=== PATIENT | male | born 1965 | race Caucasian/White ===

== ENCOUNTER 2017-02-16 09:03 | Inpatient (IN) | payer MEDICAID ==
[2017-02-02 10:30] LABS: % IMMATURE GRANULYOCYTES 0.7 % (0.0-1.1); ABSOLUTE IMMATURE GRANULOCYTES 0.05 10^3/uL (0.00-0.10); ADD DIFF? NO; ADD MORPH? NO; ADD SCAN? NO; ATYPICAL LYMPHOCYTE FLAG 10 (0-99); FRAGMENT RBC FLAG 0 (0-99); HEMOGLOBIN 14.9 g/dL (13.7-17.5); LEFT SHIFT FLG 0 (0-99); LIPEMIA HEMOLYSIS FLAG 90 (0-99); MEAN CELL HEMOGLOBIN CONCENTR. 35.5 g/dL (32.4-36.7); MEAN CELL VOLUME 87.3 fL (81.5-99.8); MEAN PLATELET VOLUME 9.7 fL (8.7-11.7); PLATELET CLUMPS FLAG 0 (0-99); PLATELET COUNT 279 10^3/uL (150-400); RED BLOOD CELL COUNT 4.81 10^6/uL (4.40-6.38); RED CELL DISTRIBUTION WIDTH 11.7 % (11.5-15.2)
[~2017-02-16 09:03] MED LIST: ACETAMINOPHEN 325 MG TAB PO ONE; DEXAMETHASONE 4 MG/ML VIAL IVP ONE; FAMOTIDINE 20 MG TAB PO ONE; ROPIVACAINE 0.2% 80 MG, EPINEPHrine 0.2 MG, KETOROLAC TROMETHAMINE 30 MG, morphINE 10 M... IU ONE; ceFAZolin 2 GM/DEXTROSE 100 ML IV ONE
[2017-02-16] MEDS ORDERED: LR 1,000 ML IV ONE (09:40)
[2017-02-16] MEDS ORDERED: LIDOCAINE 1% 2 ML INJ ID PRN (09:40)
[2017-02-16] MEDS ORDERED: ceFAZolin 1 GM/5 ML SYR ONE ×2 (09:42→10:25)
[2017-02-16] MEDS ORDERED: THROMBIN (BOVINE) 5,000 UNIT VIAL TP ONE (09:42)
[2017-02-16] MEDS ORDERED: CALCIUM CHLORIDE 1 GM/10 ML INJ ONE (09:42)
[2017-02-16] MEDS ORDERED: CEFAZOLIN 2 GM/DEXTROSE/100 ML BAG IV ONE (09:51)
[2017-02-16] MEDS ORDERED: FAMOTIDINE 20 MG TAB ONE (09:51)
[2017-02-16] MEDS ORDERED: ACETAMINOPHEN 325 MG TAB ONE (09:51)
[2017-02-16] MEDS ORDERED: DEXAMETHASONE 4 MG/ML VIAL ONE (09:51)
[2017-02-16] MEDS ORDERED: PROPOFOL/EMULSION 500 MG/50 ML BOTTLE IV ONE ×4 (09:55→12:50)
--- NOTE | 2017-02-16 10:20 | PDHPUP ---
History & Physical Update H&P update statement: This history and physical update is based on an assessment of the patient which was completed after admission or registration (within 24 hours), but prior to the surgery/procedure. H&P update: H&P reviewed & patient examined, no change in patient's condition since H&P completed
[2017-02-16] MEDS ORDERED: MIDAZOLAM 2 MG/2 ML VIAL IVP ONE (10:24)
[2017-02-16] MEDS ORDERED: fentaNYL 100 MCG/2 ML INJ ONE (10:48)
[2017-02-16] MEDS ORDERED: NALOXONE HCL 0.4 MG/ML INJ IVP PRN (11:55)
[2017-02-16] MEDS ORDERED: OXYCODONE/APAP 5/325 TAB PO PRN (11:55)
[2017-02-16] MEDS ORDERED: LR 500 ML IV PRN (11:55)
[2017-02-16] MEDS ORDERED: ACETAMINOPHEN 500 MG TAB PO PRN (11:55)
[2017-02-16] MEDS ORDERED: HYDROCODONE/APAP 5/325 TAB PO PRN (11:55)
[2017-02-16] MEDS ORDERED: fentaNYL 100 MCG/2 ML INJ IVP PRN (11:55)
[2017-02-16] MEDS ORDERED: ONDANSETRON 4 MG/2 ML VIAL IVP PRN ×2 (11:55→14:17)
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
[2017-02-16] MEDS ORDERED: ROPIVACAINE HCL 150 MG/30 ML INJ ONE (11:59)
[2017-02-16] MEDS ORDERED: PROPOFOL 200 MG/20 ML VIAL ONE (13:22)
[2017-02-16] MEDS ORDERED: CYCLOBENZAPRINE 10 MG TAB PO PRN (14:17)
[2017-02-16] MEDS ORDERED: ONDANSETRON DISINTEGRATING 4 MG TAB PO PRN (14:17)
[2017-02-16] MEDS ORDERED: POLYETHYLENE GLYCOL 3350 17 GM PKT PO PRN (14:17)
[2017-02-16] MEDS ORDERED: PROMETHAZINE HCL 25 MG/ML INJ IVP PRN (14:17)
[2017-02-16] MEDS ORDERED: BISACODYL 10 MG SUPP PR PRN (14:17)
[2017-02-16] MEDS ORDERED: LACTULOSE 20 GM/30 ML UDCUP PO PRN (14:17)
[2017-02-16] MEDS ORDERED: PROMETHAZINE HCL 25 MG SUPPR PR PRN (14:17)
[2017-02-16] MEDS ORDERED: diphenhydrAMINE 25 MG CAP PO PRN (14:17)
[2017-02-16] MEDS ORDERED: DIPHENOXYLATE/ATROPINE LOMOTIL 1 TAB PO PRN (14:17)
[2017-02-16] MEDS ORDERED: MAGNESIUM HYDROXIDE 30 ML UDCUP PO PRN (14:17)
[2017-02-16] MEDS ORDERED: METOCLOPRAMIDE 10 MG/2 ML VIAL IVP PRN (14:17)
--- NOTE | 2017-02-16 14:25 | POSTOPPROG ---
Post Op Note Date of Operation: 02/16/17 Surgeon: Jasmyn Kennedy [place] Room Hand: Mary Schneider Anesthesiologist: Dr. Brian Leach Anesthesia: Spinal Pre-op Diagnosis: right knee osteoarthritis Post-op Diagnosis: right knee osteoarthritis Indication: right knee pain Procedure: right TKA Inf/Abcess present in the surg proc area at time of surgery?: No EBL: 50-100 Complications: none
[2017-02-16] MEDS ORDERED: LR 1,000 ML IV SCH (14:30)
--- NOTE | 2017-02-16 15:34 | POSTANESTH ---
Post Anesthetic Evaluation Cardiovascular Status: Normal, Stable Respiratory Status: Normal, Stable Level of Consciousness/Mental Status: Can Participate in Eval Pain Control: Adequate, Prn Tx Ordered Nausea/Vomiting Control: Adequate, Prn Tx Ordered Complications Possibly Related to Anesthesia: None Noted
[2017-02-16] MEDS: oxyCODONE IR 5 MG TAB PO PRN ×2 (16:27→18:08)
--- NOTE | 2017-02-16 16:58 | SOAPPROG ---
SOAP Progress Note Assessment/Plan: Assessment/Plan: 51y/o male s/p right TKA - orders as written - to floor when PACU criteria met - PT/OT - anticipate discharge tomorrow pending clinical course - call with issues/concerns Patient examined at approximately 1400 02/16/17 16:56 Subjective: Denies pain. Doing well Objective: Vital Signs Temp Pulse Resp BP Pulse Ox 36.4 C 60 16 114/82 H 98 02/16/17 15:34 02/16/17 16:46 02/16/17 16:46 02/16/17 16:46 02/16/17 16:46 Laboratory Results 02/02/17 10:18 02/15/17 02/16/17 02/17/17 05:59 05:59 05:59 Intake Total 1000 Output Total 250 Balance 750 NAD, well appearing, no distress EOMi, face symmetric incision CDI, no erythema or active drainage ICD10 Worksheet Patient Problems: Problems Problem Status Onset Osteoarthritis Acute - ICD10 Problem Qualifiers (1) Osteoarthritis
[2017-02-16] MEDS: ACETAMINOPHEN 325 MG TAB PO SCH ×2 (18:09→23:10)
--- NOTE | 2017-02-16 19:15 | GOP ---
[f rep st] OPERATIVE REPORT DATE OF OPERATION: 02/16/2017 SURGEON: Jasmyn Kennedy MD LOG LOADER HELPER: Mary Schneider, PAC ANESTHESIA: Spinal with sedation and adductor canal block. PREOPERATIVE DIAGNOSIS: Severe osteoarthritis, right knee. POSTOPERATIVE DIAGNOSIS: Severe osteoarthritis, right knee. PROCEDURE PERFORMED: Right total knee arthroplasty. FINDINGS: Preoperative x-rays of the patient's right knee demonstrated severe medial compartment art hrosis with complete loss of the medial tibiofemoral joint space. The patient also had a significant varus deformity of the knee. There was ecse-ug-yjcpdukh degenerative change in the patellofemoral a nd lateral tibiofemoral joints. At the time of surgery, a cemented Higu[employer] II total knee arthroplasty was performed. A size 5 posterior stabilized Oxinium coated femoral component was cemented into place and a size 5 tibial base plate was also utilized. A 10 mm thick cross-linked po lyethylene insert was placed in the metal backing of the tibia. A 32 mm round patellar component was cemented into place. Following implantation of the components, the knee was taken through a range o f motion and achieved full extension, as well as 130 degrees of flexion. The knee was stable in exte nsion and 30 degrees of flexion. The patella tracked well in the trochlear groove. ESTIMATED BLOOD LOSS: 100 cc. DESCRIPTION OF PROCEDURE: The patient was taken to the operating room, placed in a supine position o n the operating table. Following induction of adequate spinal anesthesia and IV sedation, the leg an d knee were prepped and draped in the usual sterile manner. The patient received 2 g of IV Ancef. T he leg was elevated and exsanguinated and the tourniquet inflated to 300 mmHg. A midline incision wa s made extending from 3 fingerbreadths above the superior pole of the patella distally to the tibial tubercle. Incision was carried down through the subcutaneous tissue to the retinaculum of the knee. A medial parapatellar arthrotomy was performed and the patella was everted laterally. Appropriate s oft tissue releases were performed. The patellar thickness was measured and then a 9 mm cut was take n from the articular side of the patella. The cut surface was then protected with a metal plate and patella was placed in the lateral gutter. The knee was flexed up and the distal femoral drill hole w as placed. Intramedullary referencing was utilized for the distal femoral cut. A +2 cut was taken o n the distal femur. The femur was then sized and a size 5 femoral component was chosen as the best f it. The size 5 cutting block was placed on the distal femur and the anterior, posterior, and chamfer cuts were made. The cutting block was removed and our attention was turned to the tibia. Again, intramedullary referencing was utilized for the tibial cut. The 9 mm thick lollipop was used to determine the thickness of the tibial cut and then the cutting block was positioned and pinned. I t was aligned appropriately in varus-valgus plane. The tibial cut was made. The medial and lateral meniscus were excised. The lollipop was inserted with the knee in extension and was noted to be a ti ght fit, so an additional 2 mm was taken from the tibial side. The lollipop then was easy to pass in to both the extension and flexion gaps and these were symmetrical. The tibia was sized. A size 5 ti bial component was pinned and then the keel punch was utilized. The femoral component was placed alejandro k on the distal femur and the notch was cleared with the reamer and the box osteotome. A trial reduc tion was then performed. The 10 mm thick polyethylene was felt to be the best fit with excellent sta bility and good flexion and extension. The patella was then prepared with the patellar clamp. The d rill holes were placed. The trial patella was placed on the cut surface and the knee was again taken through a range of motion. The patella tracked well in the trochlear groove. The posterior capsule was then released and appropriate medial releases were performed due to the patient's preexisting va jamal deformity and some tightness in the medial knee. All the trial components were then removed and the bony surfaces were thoroughly irrigated and dried. The cement was mixed. The tibial component w as cemented first, followed by the femoral component, and then the patella. Pressure was held on the components while the cement hardened. Excess cement was removed from around the edges of the compon ents. Once the cement was hard, the knee was flexed up and the trial polyethylene was removed and th e 10 mm thick polyethylene was inserted without difficulty. The wound was again irrigated out and th e retinaculum of the knee was closed using #2 FiberWire in a prpmro-ld-cymyb fashion. The subcutaneo us tissue was closed using 2-0 Vicryl and the skin was closed using nanci. The joint cocktail was injected into the posterior capsule prior to closure and then was also injected into the extensor mec hanism. Platelet gel was used in the deep and superficial portions of the wound to enhance wound hea ling. Sterile dressings were applied. The patient tolerated the procedure well and there were no co mplications. Estimated blood loss minimal. Final sponge and needle counts were correct. The patien verito was transported to the recovery room in good condition. /[id number]/MODL
[2017-02-16] MEDS: ceFAZolin 2 GM/DEXTROSE 100 ML IV SCH (20:35)
[2017-02-16] MEDS: SENNOSIDES/DOCUSATE SODIUM TAB PO SCH (20:36)
[2017-02-16] MEDS: FAMOTIDINE 20 MG TAB PO SCH (20:36)
[2017-02-17] MEDS: oxyCODONE IR 5 MG TAB PO PRN ×4 (02:32→15:28)
[2017-02-17] MEDS: ceFAZolin 2 GM/DEXTROSE 100 ML IV SCH (02:37)
[2017-02-17 05:33] LABS: HEMATOCRIT 34.6 % (40.0-51.0); HEMOGLOBIN 12.5 g/dL (13.7-17.5)
[2017-02-17] MEDS: ACETAMINOPHEN 325 MG TAB PO SCH ×2 (05:54→12:08)
[2017-02-17] MEDS ORDERED: LEVOTHYROXINE 112 MCG TAB PO SCH (06:00)
[2017-02-17] MEDS ORDERED: DILTIAZEM CD 120 MG CAP PO SCH (09:00)
[2017-02-17] MEDS ORDERED: ROSUVASTATIN CALCIUM 10 MG TAB PO SCH (09:00)
[2017-02-17] MEDS ORDERED: FERROUS SULFATE 140 MG TAB.ER PO SCH (09:00)
[2017-02-17] MEDS ORDERED: ASPIRIN 81 MG CHEWABLE TAB PO SCH (09:00)
[2017-02-17] MEDS ORDERED: LISINOPRIL 10 MG TAB PO SCH (09:00)
[2017-02-17] MEDS: FAMOTIDINE 20 MG TAB PO SCH (09:32)
[2017-02-17] MEDS: SENNOSIDES/DOCUSATE SODIUM TAB PO SCH (09:35)
[2017-02-17 11:44] VITALS: BP 115/75; PULSE 90; RESP 106; TEMP 98.2; O2SAT 93
--- NOTE | 2017-02-17 14:20 | SOAPPROG ---
SOAP Progress Note Assessment/Plan: Assessment/Plan: 51y/o male s/p right TKA, stable and doing well - discussed pain management strategies, patient currently doing well - did well with PT/OT, will need home PT/OT - post-op xrays stable - f/u in 2 weeks, discussed return precautions and encouraged patient to call with any issues/concerns 02/17/17 14:18 Subjective: Pain well controlled. Eating, drinking, voiding, had a BM. Did well with PT and performed stairs Objective: Vital Signs Temp Pulse Resp BP Pulse Ox 36.8 C 90 106 H 115/75 93 02/17/17 11:42 02/17/17 11:42 02/17/17 11:42 02/17/17 11:42 02/17/17 11:42 Laboratory Results 02/17/17 04:35 02/16/17 02/17/17 02/18/17 05:59 05:59 05:59 Intake Total 2200 1150 Output Total 625 600 Balance 1575 550 NAD, well appearing, no distress EOMi, face symmetric MAEx4 right knee extension 5, flexion 60 incision CDI, no erythema or active drainage dressing changed ICD10 Worksheet Patient Problems: Problems Problem Status Onset Osteoarthritis Acute - ICD10 Problem Qualifiers (1) Osteoarthritis
--- NOTE | 2017-02-17 14:24 | PDIAF ---
- Diagnosis Diagnosis: right TKA Code Status: Do Not Resuscitate - Medication Management Discharge Medications: Medications to Continue on Transfer Diltiazem HCl [Diltiazem 24Hr ER] 120 mg PO DAILY 01/23/17 [Last Taken 02/15/17 10:00] Herbals/Supplements -Info Only 1 ea PO DAILY 01/23/17 [Last Taken 02/06/17] Levothyroxine [Synthroid 112 mcg (*)] 112 mcg PO DAILY06 01/23/17 [Last Taken 10:00] Lisinopril [Zestril 10 mg (*)] 10 mg PO DAILY 01/23/17 [Last Taken 02/15/17 10: 00] Rosuvastatin Calcium [Crestor] 10 mg PO DAILY 01/23/17 [Last Taken 02/15/17 10: 00] Acetaminophen [Tylenol 325mg (*)] 650 mg PO Q6HRS tab 02/17/17 [Last Taken Unknown] Aspirin [Aspirin 81mg (*)] 81 mg PO DAILY tab.chew 02/17/17 [Last Taken Unknown ] Ferrous Sulfate [Slow Fe 140 MG (*)] 140 mg PO DAILY tab.er 02/17/17 [Last Taken Unknown] Ibuprofen 600 mg PO Q6 #90 tablet 02/17/17 [Last Taken Unknown] oxyCODONE IR [Oxycodone Ir (*)] 5 - 15 mg PO Q3HRS PRN tab 02/17/17 [Last Taken Unknown] Discharge Medications: Refer to the Discharge Home Medication list for PRN reason. - Orders Services needed: Home Care, Physical Therapy, Occupational Therapy Home Care Face to Face: I certify that this patient was under my care and that I had the required [id number] encounter meeting the encounter requirements on the discharge day. My findings support the fact that the patient is homebound as defined in Home Care Face to Face Continued: CMS Chapter 7 Medicare Benefits Manual 30.1.1 , The condition of the patient is such that there exists a normal inability to leave home and consequently, leaving home would require a considerable and taxing effort. Diet Recommendation: no restrictions on diet Diet Texture: Regular Texture Diet Jt Stockings Discontinue Date: active care system Wound Care Instructions: keep incision clean and dry Sutures/[place] Site: we will remove at post-op visit Activity/Weight Bearing Restrictions: weight bearing as tolerated Equipment: walker - Follow Up Care Current Providers and Referrals: JULIET PEARSON [Primary Care Provider] -
--- NOTE | 2017-02-17 14:40 | ASMTCMCOM ---
CM Note CM Note Notes: Pt medically stable for d/c w Family [facility], orders sent in [employer]. Date Signed: 02/17/2017 02:40 PM Electronically Signed By:GUILLERMO Mcclain
--- NOTE | 2017-02-17 16:25 | ASDISCHSUM ---
Discharge Information Plan Status:Home with Home Health Medically Cleared to Leave: Discharge Date:02/17/2017 03:37 PM CM D/C Disposition:Home Health Service ADT D/C Disposition:[id number] Projected Discharge Date:02/17/2017 11:00 AM Transportation at D/C: Discharge Delay Reason: Follow-Up Date:02/17/2017 11:00 AM Discharge Slot: Final Diagnosis: Placement Information Referral Type:*Home Health Care Services Referral ID:[id number] Provider Name:[facility] Address 1:[address] [place] [address] Phone Number: Address 2: Fax Number: City:[place] Selection Factors: State:[place] Patient Contact Information Contact Name:KATHRINE Relationship: Address:[address] City:[place] Alternate Phone: [facility]/Zip Code:[place] [address] Email: Financial Information Financial Class:MD Primary Plan Desc:[employer] [place] Primary Plan Number:[id number] Secondary Plan Desc: Secondary Plan Number: Assessment Information [facility] CM Progress Note CM Note CM Note Notes: Pt medically stable for d/c w [facility], [facility] Date Signed: 02/17/2017 02:40 PM Electronically Signed By:GUILLERMO Mcclain Intervention Information
--- NOTE | 2017-02-20 22:33 | GDS ---
[f rep st] DISCHARGE SUMMARY ADMISSION DIAGNOSIS: Right knee pain, osteoarthritis. DISCHARGE DIAGNOSIS: Right knee pain, osteoarthritis. HOSPITAL COURSE: The patient is a pleasant 51-year-old gentleman, who is well known to our service f or ongoing right knee pain. After careful decision making and discussion, he elected to proceed fort h with a right knee total arthroplasty by Dr. Jasmyn Kennedy. He underwent this procedure on 2016, and tolerated the procedure well. He was transferred to the floor when PACU criteria was met. He worked with Physical Therapy and Occupational Therapy and continued to progress. His pain was well managed. He was fit with [employer] pumps for DVT prevention. He was eating, drinking, and voiding and ready for discharge home on February 17, 2017. He is in good and stable condition. His postoperative x-rays showed stable alignment. Home health care, physical therapy, and occupational t herapy were coordinated for him prior to discharge. He was given strict instruction to follow up in 2 weeks or sooner with any issues or changes at all. All of his questions were answered prior to dis charge home. /[id number]/MODL
== END 2017-02-17 15:37 | disposition home health service (06) | DRG 470 ==
LOC: F3E 09:03 → F3N 15:20
PROVIDERS: ADMIT Orthopaedic Surgery; ATTEND Orthopaedic Surgery
PROC: 0SRC069 Replacement of Right Knee Joint with Oxidized Zirconium on Polyethylene Synthetic Substitute, Cemented, Open Approach (ICD-10-PCS; principal; 2017-02-16 10:45)
DX: M17.11 Unilateral primary osteoarthritis, right knee (principal); E03.9 Hypothyroidism, unspecified; E66.9 Obesity, unspecified; Z68.30 Body mass index [BMI] 30.0-30.9, adult
CPT/HCPCS: 97116-GP; 97161-GP; 97165-GO; C1713; J0171; J0690; J1100; J1885; J2250; J2704; J2795; J3010